=== PATIENT | female | born 2000 | race Two or more races ===

== ENCOUNTER 2019-10-11 03:11 | Emergency (ER) | payer SELFPAY ==
[~2019-10-11] VITALS: Ht 160 cm; Wt 89.4 kg
--- NOTE | 2019-10-11 03:30 | NUR ---
Pt presents to room reporting fullness in both ears for 2 weeks. Pt then reports developing a sore throat in the last week but is not concerned with that here. Here pt has tenderness to her left ear and the surrounding area that radiates to the left side of her neck.
[2019-10-11 03:44] VITALS: BP 111/85
== END 2019-10-11 03:48 ==
LOC: ED 03:42
DX: H66.002 Acute suppurative otitis media without spontaneous rupture of ear drum, left ear (principal)
CPT/HCPCS: 99283